=== PATIENT | male | born 1970 | race Two or more races ===

== ENCOUNTER 2019-11-05 21:09 | Emergency (ER) | payer OTHER ==
[~2019-11-05] VITALS: Ht 180.3 cm; Wt 107.5 kg
--- NOTE | 2019-11-05 21:40 | NUR ---
PT CAME INTO THE ED C/O THROAT TIGHTNESS S/P EATING TUNA WRAP X1100 TODAY, FORCING SELF TO VOMIT. VSS. AAOX4. NO ACUTE DISTRESS NOTED. CONNECTED TO THE [employer] AND [employer]
[2019-11-05 22:51] VITALS: BP 132/78
--- NOTE | 2019-11-05 22:52 | NUR ---
Patient ambulatory w/ steady gait, resp even & unlabored, denies any pain, no sob, report feeling better at this time w/ nad noted. Patient discharged to home in stable condition. Written and verbal after care instructions given. Patient verbalizes understanding of instruction.
== END 2019-11-05 22:51 | disposition home or self-care (01) ==
LOC: ER 21:09
DX: F41.0 Panic disorder [episodic paroxysmal anxiety] (principal); F10.10 Alcohol abuse, uncomplicated; F12.10 Cannabis abuse, uncomplicated; Y90.9 Presence of alcohol in blood, level not specified